=== PATIENT | male | born 1960 | race African-American/Black ===

== ENCOUNTER 2019-08-16 16:10 | Outpatient (CLI) | payer BC | END 2019-08-16 16:11 | disposition home or self-care (01) | LOC: CTENTCT 16:10 | PROVIDERS: ATTEND Otolaryngology Plastic Surgery within the Head & Neck | DX: J32.9 Chronic sinusitis, unspecified (principal) | CPT/HCPCS: 70486 ==

== ENCOUNTER 2019-09-01 07:47 | Day surgery (SDC) | payer BC ==
[2019-08-31 15:00] VITALS: BMI 27.3
[2019-09-01] MEDS ORDERED: Fentanyl 250 MCG/5 ML VIAL ONE (09:08)
[2019-09-01] MEDS ORDERED: Oxymetazoline HCl 0.05% ( 15 ML ) ONE (09:21)
[2019-09-01] MEDS ORDERED: Lidocaine 1% w/Epinephrine 1:100K 20 ML VIAL ONE (10:10)
[2019-09-01] MEDS ORDERED: Lidocaine 1% PF 5 ML VIAL ONE (11:17)
[2019-09-01] MEDS ORDERED: Ondansetron PF 4 MG/2 ML Vial ONE (11:17)
[2019-09-01] MEDS ORDERED: Dexamethasone 20 MG/5 ML VIAL ONE (11:17)
[2019-09-01] MEDS ORDERED: ePHEDrine/0.9% NaCl/PF SYRINGE 50 mg/10 ml ONE (11:17)
[2019-09-01] MEDS ORDERED: Rocuronium Bromide 10 MG/ML (10ML VIAL) ONE (11:17)
[2019-09-01] MEDS ORDERED: PROPOFOL 200 MG/20 ML VIAL ONE (11:17)
[2019-09-01] MEDS ORDERED: Labetalol HCl 100 MG/20 ML VIAL ONE ×2 (11:17→12:06)
[2019-09-01] MEDS ORDERED: Fentanyl 100 MCG/2 ML VIAL ONE (11:34)
--- NOTE | 2019-09-02 14:25 | OP ---
DATE OF PROCEDURE: 09/01/2019 PREOPERATIVE DIAGNOSES: 1. Chronic rhinosinusitis. 2. Bilateral middle turbinate rona bullosa. 3. Allergic fungal sinusitis. 4. Nasal septal deviation. 5. Bilateral inferior turbinate hypertrophy. 6. Nasal obstruction. POSTOPERATIVE DIAGNOSES: 1. Chronic rhinosinusitis. 2. Bilateral middle turbinate rona bullosa. 3. Allergic fungal sinusitis. 4. Nasal septal deviation. 5. Bilateral inferior turbinate hypertrophy. 6. Nasal obstruction. PROCEDURES PERFORMED: 1. Bilateral endoscopic sinus surgery, total ethmoidectomies. 2. Bilateral endoscopic sinus surgery, maxillary antrostomies. 3. Bilateral endoscopic sinus surgery, frontal sinusotomies. 4. Bilateral endoscopic sinus surgery, sphenoidotomies. 5. Nasal septoplasty. 6. Bilateral inferior turbinate submucosal resection. 7. Bilateral endoscopic resection of middle turbinate rona bullosa. ESTIMATED BLOOD LOSS: 50 mL. COMPLICATIONS: None. ANESTHESIA: GETA. PROCEDURE IN DETAIL: The patient was taken to the operating room and GETA was obtained by the anesthesia staff. Afrin pledgets were then placed into the nasal cavity bilaterally. The patient was placed into the beach chair position and was prepped and draped for standard nasal surgical procedures. Following this, the Afrin pledgets were removed and 1% lidocaine with 1:100,000 epinephrine was injected via a 27 gauge needle into the nasal septum, the inferior turbinate and the middle turbinate bilaterally. Following this, a [place] incision was made on the left nasal septum and mucoperichondrial flaps were elevated. A strong 2 cm caudal and dorsal cartilage strut was left intact as the deviated portions of the nasal cartilage and bone was removed. A 4-0 gut stitch was used to reapproximate the nasal mucoperichondrial flaps as well as close the [place] incision. Following this, the submucosal microdebrider was used to puncture and submucosally resect the anterior-inferior portions of the hypertrophic inferior turbinates. The inferior turbinates were laterally outfractured with a [place] elevator. Following this, 1% lidocaine with 1:100,000 epinephrine were injected into the middle turbinates and lateral nasal wall bilaterally. Following this, the 0-degree endoscope was used to visualize the middle turbinate and the middle turbinate was medially fractured using a [place] elevator. Following this, the uncinate process was identified and was examined. The uncinate process was noted to be inflamed and laterally displaced bilaterally. Following this, a ball-ended probe was used to anteriorly fracture the uncinate process bilaterally. Following this, the 0-degree microdebrider and the up-biting [place] forceps were used to remove the uncinate process bilaterally. Following this, the natural maxillary sinus ostia was identified with the 0-degree endoscope and the ball-ended probe. The natural maxillary ostia was then widened using a 40-degree microdebrider and the straight [place] forceps bilaterally. Following this, the ethmoidal bulla was identified bilaterally. A 0-degree microdebrider was used to puncture the ethmoidal bulla on its medial and inferior aspect bilaterally. Following this, the 0-degree microdebrider and the up-biting [place] forceps were used to remove the ethmoidal bulla. Following this, the grand lamella was identified posterior to this area and was punctured using the 0-degree microdebrider bilaterally. Following this, the ethmoidal cells were opened from the posterior to the anterior using the 0-degree microdebrider, the 40-degree microdebrider and the up-biting [place] forceps bilaterally. Following this, the 45-degree endoscope and the 40-degree microdebrider blade were used to further remove the anterior ethmoidal cells to the level of the frontal sinus recess bilaterally. Following this, the 0-degree endoscope was then advanced through the previous ethmoidectomies to the anterior wall of the sphenoid sinus. The sphenoid sinus was then punctured with a [place] tip suction bilaterally, staying just medial and inferior to the attachment of the superior turbinate. Following this, the sphenoidotomy was then widened medially and inferiorly using the 0-degree microdebrider bilaterally. Following this, the large rona bullosa deformities of the middle turbinates were addressed. A vertical incision was made in the anterior face of the middle turbinate bilaterally. The lateral wall of the rona bullosa deformity was resected using a 0 degree microdebrider and the straight [place] forceps. In the left rona bullosa, there was fungal debris which was removed using [place] forceps and suction. Following this, the 45-degree endoscope and the 40-degree microdebrider blade were used to visualize the anterior ethmoidal cells and further open the frontal recess cells and expose the frontal sinus ostia bilaterally. Following this, the frontal sinus ostia was widened using a 40-degree microdebrider blade and up-biting [place] forceps bilaterally. Following this, the nasal cavity was irrigated. Steroid stents were placed in the middle meatus and the frontal sinus ostia to help prevent attachments and scarring from the middle turbinate to the lateral nasal wall. Following this, the nasal cavity was irrigated. NasoPore packing was placed within the middle meatus bilaterally and [place] splints were placed and secured. The patient tolerated the procedure well. Job ID: [id number]
--- NOTE | 2019-09-05 16:10 | EKG ---
Test Reason : PREOP Blood Pressure : / mmHG Vent. Rate : 078 BPM Atrial Rate : 078 BPM P-R Int : 156 ms QRS Dur : 084 ms QT Int : 370 ms P-R-T Axes : 046 004 017 degrees QTc Int : 421 ms Normal sinus rhythm Minimal voltage criteria for LVH, may be normal variant Inferior infarct , age undetermined Abnormal ECG When compared with ECG of 14-AUG-1998 14:43, Inferior infarct is now Present Confirmed by DR. Bj ALAS ([id number]) on 09/05/2019 4:10:01 PM Referred By: EUNICE Confirmed By:DR. Bj ALAS
== END 2019-09-01 13:25 | disposition home or self-care (01) ==
LOC: SDC 07:47
PROVIDERS: ATTEND Otolaryngology Plastic Surgery within the Head & Neck
PROC: 09CX8ZZ Extirpation of Matter from Left Sphenoid Sinus, Via Natural or Artificial Opening Endoscopic (ICD-10-PCS; principal; 2019-09-01)
PROC: 09BT8ZZ Excision of Left Frontal Sinus, Via Natural or Artificial Opening Endoscopic (ICD-10-PCS; principal; 2019-09-01)
PROC: 09TL8ZZ Resection of Nasal Turbinate, Via Natural or Artificial Opening Endoscopic (ICD-10-PCS; principal; 2019-09-01)
PROC: 09BS8ZZ Excision of Right Frontal Sinus, Via Natural or Artificial Opening Endoscopic (ICD-10-PCS; principal; 2019-09-01)
PROC: 09TV8ZZ Resection of Left Ethmoid Sinus, Via Natural or Artificial Opening Endoscopic (ICD-10-PCS; principal; 2019-09-01)
PROC: 09BM8ZZ Excision of Nasal Septum, Via Natural or Artificial Opening Endoscopic (ICD-10-PCS; principal; 2019-09-01)
PROC: 099R8ZZ Drainage of Left Maxillary Sinus, Via Natural or Artificial Opening Endoscopic (ICD-10-PCS; principal; 2019-09-01)
PROC: 099Q8ZZ Drainage of Right Maxillary Sinus, Via Natural or Artificial Opening Endoscopic (ICD-10-PCS; principal; 2019-09-01)
PROC: 09CW8ZZ Extirpation of Matter from Right Sphenoid Sinus, Via Natural or Artificial Opening Endoscopic (ICD-10-PCS; principal; 2019-09-01)
PROC: 09TU8ZZ Resection of Right Ethmoid Sinus, Via Natural or Artificial Opening Endoscopic (ICD-10-PCS; principal; 2019-09-01)
DX: J32.9 Chronic sinusitis, unspecified (principal); J34.2 Deviated nasal septum; J34.3 Hypertrophy of nasal turbinates; J34.89 Other specified disorders of nose and nasal sinuses; I10 Essential (primary) hypertension; E11.9 Type 2 diabetes mellitus without complications; Z79.899 Other long term (current) drug therapy
CPT/HCPCS: 93005; 93010; J0131; J1100; J2001; J2405; J2704; J3010